=== PATIENT | male | born 1945 | race American Indian/Alaskan Native ===

== ENCOUNTER 2017-03-17 08:18 | Day surgery (SDC) | payer MEDICARE, OTHER ==
[~2017-03-17 08:18] MED LIST: ALBU90OI6 INH; ALLO300 PO; Aspirin EC81 MG PO; BUDE6HFA INH; Calcitriol0.5 MCG PO; Docusate Sodiu1 EACH PO; EPOETIN ALFA 20000 UNIT SC; EXTRANEAL ICO2500 ML IP; GABA400 PO; GENTAMICIN 0.1% TOP; HYDACE10B PO; LAVAP17G PO; Multi-Day Vita1 EACH PO; OMEPRAZOLE MAGN20 MG PO; PAROEX473 ML MM; SEVEC800 PO; Sensipar60 MG PO; TUMS200 MG PO; UBID100 PO; VIT1CAPS12 PO
[2018-03-21] MEDS ORDERED: ASPI81CH PO (14:53)
[2018-03-21] MEDS ORDERED: Ancef/Kefzol1000 MG (14:53)
[2018-03-21] MEDS ORDERED: BUDE.25 NEB (14:53)
[2018-03-21] MEDS ORDERED: BUDE6HFA INH (14:54)
[2018-03-21] MEDS ORDERED: CEPH125SU PO (14:54)
[2018-03-21] MEDS ORDERED: GAVILAX17 GM PO (14:54)
[2018-03-21] MEDS ORDERED: CALC.25 PO (14:54)
[2018-03-22] MEDS ORDERED: CALC.25 PO (09:49)
[2018-03-22] MEDS ORDERED: Midodrine HCl5 MG PO (09:50)
[2018-03-22] MEDS ORDERED: ATOR20 PO (13:33)
== END 2017-03-17 22:37 | disposition home or self-care (01) ==
LOC: ATC 08:18
DX: E22.2 Syndrome of inappropriate secretion of antidiuretic hormone (principal); N18.6 End stage renal disease; I95.9 Hypotension, unspecified; Z99.2 Dependence on renal dialysis
CPT/HCPCS: 96365; 96366; J3475

== ENCOUNTER → 2017-04-13 | Outpatient (CLI) | payer MEDICARE, OTHER ==
[~2017-04-13] MED LIST changes: +ASPI81CH PO; +ATOR20 PO; +Ancef/Kefzol1000 MG; +BUDE.25 NEB; +CALC.25 PO; +CEPH125SU PO; +CINA30 PO; +EPOGEN SC; +ESCI10 PO; +FINA5 PO; +Fludrocortison0.1 MG PO; +GAVILAX17 GM PO; +Gentak3.5 GM TOP; +K-Tab10 MEQ PO; +MAGCHL64ER PO; +MIDO5 PO; +Midodrine HCl5 MG PO; +NAPR500 PO; +Norco 10-325 T1 EACH PO; +PERIDEX15 ML MM; +Rena-Vite Tabl0.8 MG PO; +TAMS.4ER PO; +ZINC OXIDE PO; +ZINC220
[2017-04-13 14:46] LABS: Magnesium, Blood 1.2 mg/dL (1.6-2.4)
[2017-04-13 14:55] LABS: Anion Gap 15 mmol/L (6-16); Blood Urea Nitrogen 44 mg/dL (8-24); Bun/Creatinine Ratio 5.1 (12.0-20.0); CO2, Blood 21 mmol/L (21-32); Chloride, Blood 99 mmol/L (98-108); Glomerular Filtration Rate 7 (60-); Glucose, Blood 112 mg/dL (70-99); Potassium, Blood 3.7 mmol/L (3.5-5.5); Sodium, Blood 135 mmol/L (136-145)
== END ==
LOC: LAB 12:15
PROVIDERS: Internal Medicine
DX: Z12.5 Encounter for screening for malignant neoplasm of prostate (principal); E61.2 Magnesium deficiency; N18.6 End stage renal disease
CPT/HCPCS: 80048; 83735; G0103

== ENCOUNTER → 2017-07-01 | Outpatient (CLI) | payer MEDICARE, OTHER ==
[~2017-07-01] MED LIST changes: -ASPI81CH PO; -ATOR20 PO; -Ancef/Kefzol1000 MG; -BUDE.25 NEB; -CALC.25 PO; -CEPH125SU PO; -GAVILAX17 GM PO; -Midodrine HCl5 MG PO
== END | disposition home or self-care (01) ==
LOC: LAB 15:14 → LAB SHORT 15:14
DX: M12.512 Traumatic arthropathy, left shoulder (principal); Z79.899 Other long term (current) drug therapy

== ENCOUNTER 2017-07-20 11:23 | Observation (INO) | payer MEDICARE, OTHER ==
[~2017-07-20] VITALS: Ht 172.7 cm; Wt 80.7 kg
[~2017-07-20 11:23] MED LIST changes: -CINA30 PO; -EPOGEN SC; -ESCI10 PO; -FINA5 PO; -Fludrocortison0.1 MG PO; -Gentak3.5 GM TOP; -K-Tab10 MEQ PO; -MAGCHL64ER PO; -MIDO5 PO; -NAPR500 PO; -Norco 10-325 T1 EACH PO; -PERIDEX15 ML MM; -Rena-Vite Tabl0.8 MG PO; -TAMS.4ER PO; -ZINC OXIDE PO; -ZINC220
[2017-07-20] MEDS ORDERED: CINA30 PO (11:48)
[2017-07-20] MEDS ORDERED: ZINC OXIDE PO (11:49)
[2017-07-20] MEDS ORDERED: TAMS.4ER PO (11:49)
[2017-07-20] MEDS ORDERED: Rena-Vite Tabl0.8 MG PO (11:50)
[2017-07-20] MEDS ORDERED: K-Tab10 MEQ PO (11:52)
[2017-07-20] MEDS ORDERED: MIDO5 PO (11:52)
[2017-07-20] MEDS ORDERED: ESCI10 PO (11:52)
[2017-07-20] MEDS ORDERED: NAPR500 PO (11:53)
[2017-07-20] MEDS ORDERED: EPOGEN SC (11:54)
[2017-07-20] MEDS ORDERED: FINA5 PO (11:54)
[2017-07-20] MEDS ORDERED: Norco 10-325 T1 EACH PO (11:54)
[2017-07-20] MEDS ORDERED: PERIDEX15 ML MM (11:55)
[2017-07-20 12:20] LABS: BASOPHILS ABSOLUTE AUTO 0.07 K/mm3 (0.00-0.23); BASOPHILS PERCENT AUTO 1 % (0-2); EOSINOPHILS ABSOLUTE AUTO 1.18 K/mm3 (0.00-0.68); EOSINOPHILS PERCENT AUTO 10 % (0-6); Hematocrit 34.9 % (37.0-53.0); IMMATURE GRAN ABSOLUTE AUTO 0.08 K/mm3 (0.00-0.10); IMMATURE GRAN PERCENT AUTO 1 % (0-1); LYMPHOCYTES ABSOLUTE AUTO 2.05 K/mm3 (0.84-5.20); LYMPHOCYTES PERCENT AUTO 17 % (21-46); MONOCYTES ABSOLUTE AUTO 1.04 K/mm3 (0.16-1.47); MONOCYTES PERCENT AUTO 9 % (4-13); Mean Corpuscular HGB 31.8 pg (26.0-34.0); Mean Corpuscular HGB Conc 31.5 g/dL (31.5-36.5); Mean Corpuscular Volume 101 fL (80-100); Mean Platelet Volume 9.6 fL (9.1-12.4); NEUTROPHILS ABSOLUTE AUTO 7.38 K/mm3 (1.96-9.15); NEUTROPHILS PERCENT AUTO 63 % (41-73); NRBC ABSOLUTE 0.04 K/mm3 (0.00-0.02); NRBC Auto 0.3 /100 WBC (0.0-0.2); Platelet Count 302 K/mm3 (150-400); RDW Coefficient Variation 15.1 % (11.7-14.2); RDW Standard Deviation 56.1 fL (35.1-46.3); Red Blood Cell Count 3.46 M/mm3 (4.30-5.90)
[2017-07-20 12:32] LABS: Albumin, Blood 1.5 g/dL (3.4-5.0); Albumin/Globulin Ratio 0.3 (0.8-1.8); Alk Phos 157 U/L (50-136); Anion Gap 13 mmol/L (6-16); Aspartate Aminotrans (AST/SGOT 10 U/L (12-37); Bilirubin, Total 0.3 mg/dL (0.1-1.0); Blood Urea Nitrogen 40 mg/dL (8-24); CO2, Blood 25 mmol/L (21-32); Chloride, Blood 101 mmol/L (98-108); Creatinine, Blood 6.72 mg/dL (0.60-1.20); Globulin, Blood 4.6 g/dL (2.2-4.0); Glomerular Filtration Rate 9 (60-); Glucose, Blood 100 mg/dL (70-99); Magnesium, Blood 2.1 mg/dL (1.6-2.4); Phosphorus, Blood 2.9 mg/dL (2.5-4.9); Potassium, Blood 3.8 mmol/L (3.5-5.5); Sodium, Blood 139 mmol/L (136-145); Total Protein, Blood 6.1 g/dL (6.4-8.2)
[2017-07-20 12:34] LABS: Alanine Aminotransfer (ALT/SGP <6 U/L (12-78)
[2017-07-20 15:21] LABS: Percent Saturation 36.1 % (20.0-50.0)
[2017-07-20] MEDS ORDERED: MAGCHL64ER PO (20:32)
[2017-07-20] MEDS ORDERED: SEVEC800 PO (20:35)
[2017-07-21 06:02] LABS: BASOPHILS ABSOLUTE AUTO 0.12 K/mm3 (0.00-0.23); BASOPHILS PERCENT AUTO 1 % (0-2); EOSINOPHILS ABSOLUTE AUTO 1.47 K/mm3 (0.00-0.68); EOSINOPHILS PERCENT AUTO 14 % (0-6); Hematocrit 33.4 % (37.0-53.0); Hemoglobin 10.4 g/dL (13.5-17.5); IMMATURE GRAN PERCENT AUTO 1 % (0-1); LYMPHOCYTES ABSOLUTE AUTO 1.98 K/mm3 (0.84-5.20); LYMPHOCYTES PERCENT AUTO 19 % (21-46); MONOCYTES ABSOLUTE AUTO 1.22 K/mm3 (0.16-1.47); MONOCYTES PERCENT AUTO 12 % (4-13); Mean Corpuscular HGB 31.2 pg (26.0-34.0); Mean Corpuscular HGB Conc 31.1 g/dL (31.5-36.5); Mean Corpuscular Volume 100 fL (80-100); Mean Platelet Volume 9.2 fL (9.1-12.4); NEUTROPHILS ABSOLUTE AUTO 5.75 K/mm3 (1.96-9.15); NEUTROPHILS PERCENT AUTO 54 % (41-73); Platelet Count 275 K/mm3 (150-400); RDW Coefficient Variation 15.1 % (11.7-14.2); RDW Standard Deviation 54.5 fL (35.1-46.3); Red Blood Cell Count 3.33 M/mm3 (4.30-5.90); White Blood Cell Count 10.64 K/mm3 (4.00-11.30)
[2017-07-21 06:26] LABS: Albumin, Blood 1.5 g/dL (3.4-5.0); Anion Gap 13 mmol/L (6-16); Blood Urea Nitrogen 40 mg/dL (8-24); Bun/Creatinine Ratio 5.9 (12.0-20.0); CO2, Blood 23 mmol/L (21-32); Calcium, Blood 9.5 mg/dL (8.5-10.1); Chloride, Blood 106 mmol/L (98-108); Creatinine, Blood 6.73 mg/dL (0.60-1.20); Glomerular Filtration Rate 9 (60-); Glucose, Blood 98 mg/dL (70-99); Phosphorus, Blood 3.5 mg/dL (2.5-4.9); Potassium, Blood 3.6 mmol/L (3.5-5.5); Sodium, Blood 142 mmol/L (136-145)
[2017-07-21] MEDS ORDERED: TUMS200 MG PO (15:14)
[2017-07-21] MEDS ORDERED: ZINC220 (15:15)
[2017-07-21] MEDS ORDERED: Fludrocortison0.1 MG PO (15:17)
[2017-07-21] MEDS ORDERED: Gentak3.5 GM TOP (15:27)
== END 2017-07-21 16:10 | disposition home or self-care (01) ==
LOC: ER 11:23 → MEDS 11:24
PROVIDERS: Emergency Medicine; Internal Medicine
DX: I95.89 Other hypotension (principal); N18.6 End stage renal disease; D63.1 Anemia in chronic kidney disease; K65.9 Peritonitis, unspecified; R63.4 Abnormal weight loss; R55 Syncope and collapse; N40.0 Benign prostatic hyperplasia without lower urinary tract symptoms; K21.9 Gastro-esophageal reflux disease without esophagitis; F32.9 Major depressive disorder, single episode, unspecified; J44.9 Chronic obstructive pulmonary disease, unspecified; Z88.5 Allergy status to narcotic agent; Z79.899 Other long term (current) drug therapy; Z99.2 Dependence on renal dialysis
CPT/HCPCS: 36415; 74176; 80053; 80069; 82024; 82533; 82728; 83540; 83550; 83735; 84100; 84443; 85025; 93005; 93010; 94640; 94760; 96360; 96361; 96372; 99285; G0257; G0378; J0690; J1644; J7030

== ENCOUNTER 2017-07-25 23:31 | Inpatient (IN) | payer MEDICARE, OTHER ==
[~2017-07-25] VITALS: Ht 172.7 cm; Wt 82.2 kg
[~2017-07-25 23:31] MED LIST changes: +CINA30 PO; +EPOGEN SC; +ESCI10 PO; +FINA5 PO; +Fludrocortison0.1 MG PO; +Gentak3.5 GM TOP; +K-Tab10 MEQ PO; +MAGCHL64ER PO; +MIDO5 PO; +NAPR500 PO; +Norco 10-325 T1 EACH PO; +PERIDEX15 ML MM; +Rena-Vite Tabl0.8 MG PO; +TAMS.4ER PO; +ZINC OXIDE PO; +ZINC220
[2017-07-26 01:08] LABS: BASOPHILS PERCENT AUTO 1 % (0-2); EOSINOPHILS ABSOLUTE AUTO 1.29 K/mm3 (0.00-0.68); EOSINOPHILS PERCENT AUTO 10 % (0-6); Hematocrit 32.8 % (37.0-53.0); Hemoglobin 10.1 g/dL (13.5-17.5); IMMATURE GRAN ABSOLUTE AUTO 0.08 K/mm3 (0.00-0.10); IMMATURE GRAN PERCENT AUTO 1 % (0-1); LYMPHOCYTES ABSOLUTE AUTO 2.03 K/mm3 (0.84-5.20); LYMPHOCYTES PERCENT AUTO 15 % (21-46); MONOCYTES ABSOLUTE AUTO 1.17 K/mm3 (0.16-1.47); MONOCYTES PERCENT AUTO 9 % (4-13); Mean Corpuscular HGB 32.2 pg (26.0-34.0); Mean Corpuscular HGB Conc 30.8 g/dL (31.5-36.5); Mean Platelet Volume 9.2 fL (9.1-12.4); NEUTROPHILS ABSOLUTE AUTO 8.98 K/mm3 (1.96-9.15); NEUTROPHILS PERCENT AUTO 66 % (41-73); NRBC ABSOLUTE 0.03 K/mm3 (0.00-0.02); NRBC Auto 0.2 /100 WBC (0.0-0.2); Platelet Count 260 K/mm3 (150-400); RDW Coefficient Variation 16.1 % (11.7-14.2); RDW Standard Deviation 60.6 fL (35.1-46.3); Red Blood Cell Count 3.14 M/mm3 (4.30-5.90); White Blood Cell Count 13.65 K/mm3 (4.00-11.30)
[2017-07-26 01:09] LABS: Mean Corpuscular Volume 105 fL (80-100)
[2017-07-26 01:23] LABS: Alanine Aminotransfer (ALT/SGP <6 U/L (12-78); Albumin, Blood 1.7 g/dL (3.4-5.0); Albumin/Globulin Ratio 0.4 (0.8-1.8); Alk Phos 163 U/L (50-136); Anion Gap 12 mmol/L (6-16); Aspartate Aminotrans (AST/SGOT 13 U/L (12-37); Bilirubin, Total 0.2 mg/dL (0.1-1.0); Blood Urea Nitrogen 52 mg/dL (8-24); Bun/Creatinine Ratio 6.6 (12.0-20.0); CO2, Blood 25 mmol/L (21-32); Calcium, Blood 8.8 mg/dL (8.5-10.1); Chloride, Blood 105 mmol/L (98-108); Globulin, Blood 4.3 g/dL (2.2-4.0); Glomerular Filtration Rate 7 (60-); Glucose, Blood 107 mg/dL (70-99); Potassium, Blood 3.8 mmol/L (3.5-5.5); Sodium, Blood 142 mmol/L (136-145)
[2017-07-26 08:35] LABS: Hematocrit 27.8 % (37.0-53.0); Hemoglobin 8.6 g/dL (13.5-17.5)
[2017-07-26 10:26] LABS: Amylase, Blood 82 U/L (25-115)
[2017-07-26 10:28] LABS: Lactate Dehydrogenase (Ld),Bld 147 U/L (100-240)
[2017-07-26 14:54] LABS: Body Fluid WBC Count 20 /mm3 (0-999)
[2017-07-26 15:19] LABS: RBC Count, Body Fluid 27 /mm3 (0-0)
[2017-07-26 16:26] LABS: Hematocrit 28.2 % (37.0-53.0); Hemoglobin 8.6 g/dL (13.5-17.5)
[2017-07-26 16:35] LABS: Appearance, Body Fluid Clear (Clear); Color, Body Fluid No color (None-Yellow)
[2017-07-26 16:36] LABS: Total Cell Count, Body Fluid 100
[2017-07-26 16:58] LABS: Adenovirus F 40/41 Not Detected (NOT DETECT); Astrovirus Not Detected (NOT DETECT); Campylobacter Sp Not Detected (NOT DETECT); Cryptosporidium Not Detected (NOT DETECT); Cyclospora Cayetanensis Not Detected (NOT DETECT); E. Coli O157 Not Detected (NOT DETECT); Entamoeba Histolytica Not Detected (NOT DETECT); Enteroaggregative E. coli-EAEC Not Detected (NOT DETECT); Enteropathogenic E. coli-EPEC Not Detected (NOT DETECT); Enterotoxigenic E. coli-ETEC Not Detected (NOT DETECT); Giardia Lamblia Not Detected (NOT DETECT); Norovirus GI/GII Not Detected (NOT DETECT); Plesiomonas Shigelloides Not Detected (NOT DETECT); Rotavirus A Not Detected (NOT DETECT); Salmonella Sp Not Detected (NOT DETECT); Sapovirus Not Detected (NOT DETECT); Shiga Toxin-prod E. coli-STEC Not Detected (NOT DETECT); Shigella/Enteroin E. coli-EIEC Not Detected (NOT DETECT); Vibrio Cholerae Not Detected (NOT DETECT); Vibrio Sp Not Detected (NOT DETECT); Yersinia Enterocolitica Not Detected (NOT DETECT)
[2017-07-27 00:54] LABS: Hematocrit 29.1 % (37.0-53.0); Hemoglobin 8.9 g/dL (13.5-17.5)
[2017-07-27 01:16] LABS: Magnesium, Blood 2.2 mg/dL (1.6-2.4)
[2017-07-27 01:21] LABS: Albumin, Blood 1.5 g/dL (3.4-5.0); Anion Gap 13 mmol/L (6-16); Blood Urea Nitrogen 59 mg/dL (8-24); Bun/Creatinine Ratio 7.1 (12.0-20.0); CO2, Blood 26 mmol/L (21-32); Calcium, Blood 8.8 mg/dL (8.5-10.1); Chloride, Blood 103 mmol/L (98-108); Creatinine, Blood 8.32 mg/dL (0.60-1.20); Glomerular Filtration Rate 7 (60-); Glucose, Blood 109 mg/dL (70-99); Phosphorus, Blood 3.6 mg/dL (2.5-4.9); Sodium, Blood 142 mmol/L (136-145)
[2017-07-28 05:19] LABS: Hematocrit 28.6 % (37.0-53.0); Hemoglobin 8.8 g/dL (13.5-17.5)
== END 2017-07-28 16:05 | disposition home or self-care (01) | DRG 377 ==
LOC: ER 23:31 → ERHOLD 23:32 → ICUW 23:32 → MEDS 07-26 04:30 → ICUW 07-26 15:12 → MEDS 07-27 11:51
PROVIDERS: Emergency Medicine; Internal Medicine; Internal Medicine Gastroenterology
PROC: 5A1D70Z Performance of Urinary Filtration, Intermittent, Less than 6 Hours Per Day (ICD-10-PCS; 2017-07-27)
PROC: 0W3P8ZZ Control Bleeding in Gastrointestinal Tract, Via Natural or Artificial Opening Endoscopic (ICD-10-PCS; 2017-07-27)
PROC: 0DBH8ZX Excision of Cecum, Via Natural or Artificial Opening Endoscopic, Diagnostic (ICD-10-PCS; principal; 2017-07-27 12:00)
PROC: 0DBL8ZX Excision of Transverse Colon, Via Natural or Artificial Opening Endoscopic, Diagnostic (ICD-10-PCS; 2017-07-27 12:00)
PROC: 0DBN8ZX Excision of Sigmoid Colon, Via Natural or Artificial Opening Endoscopic, Diagnostic (ICD-10-PCS; 2017-07-27 12:00)
PROC: 0DBM8ZX Excision of Descending Colon, Via Natural or Artificial Opening Endoscopic, Diagnostic (ICD-10-PCS; 2017-07-27 12:00)
PROC: 0DB68ZX Excision of Stomach, Via Natural or Artificial Opening Endoscopic, Diagnostic (ICD-10-PCS; 2017-07-27 12:00)
DX: K92.1 Melena (principal); N18.6 End stage renal disease; K65.9 Peritonitis, unspecified; I13.2 Hypertensive heart and chronic kidney disease with heart failure and with stage 5 chronic kidney disease, or end stage renal disease; K57.30 Diverticulosis of large intestine without perforation or abscess without bleeding; K64.8 Other hemorrhoids; K64.4 Residual hemorrhoidal skin tags; K22.8 Other specified diseases of esophagus; K22.5 Diverticulum of esophagus, acquired; K44.9 Diaphragmatic hernia without obstruction or gangrene; I50.9 Heart failure, unspecified; Z99.2 Dependence on renal dialysis; K21.9 Gastro-esophageal reflux disease without esophagitis; N40.0 Benign prostatic hyperplasia without lower urinary tract symptoms; R63.4 Abnormal weight loss; R13.10 Dysphagia, unspecified; D12.0 Benign neoplasm of cecum; K63.5 Polyp of colon
CPT/HCPCS: 36415; 80053; 80069; 82150; 83605; 83615; 83690; 83735; 83993; 85014; 85018; 85025; 87070; 87205; 87507; 88305; 88342; 89051; 93005; 93010; 94762; 99285; G0378; J0290; J0690; J0881; J1580; J1644; J2250; J2405; J3010; J7030; J7120

== ENCOUNTER → 2018-03-14 | Outpatient (CLI) | payer MEDICARE, OTHER ==
[~2018-03-14] MED LIST changes: +ASPI81CH PO; +ATOR20 PO; +Ancef/Kefzol1000 MG; +BUDE.25 NEB; +CALC.25 PO; +CEPH125SU PO; +GAVILAX17 GM PO; +Midodrine HCl5 MG PO
[2018-03-14 11:23] LABS: Bilirubin, Urine Neg (Neg); Blood, Urine 1+ (Neg); Glucose Qualitative, Urine 1+ (Neg); Ketones, Urine Neg (Neg); Leukocyte Esterase, Urine Neg (Neg); Nitrite, Urine Neg (Neg); Protein, Urine 3+ (Neg); Urobilinogen, Urine NORM (Normal)
[2018-03-14 11:52] LABS: Appearance, Urine Clear (Clear); Color, Urine Yellow (P-Yellow)
[2018-03-14 11:53] LABS: Bacteria Few /hpf; Squamous Epithelial Cells Few /hpf (Few)
== END | disposition home or self-care (01) ==
LOC: LAB SHORT 10:12 → LAB 10:12 → EDSTATUS 03-10 14:40 → LAB FUT 03-10 14:40
PROVIDERS: Internal Medicine
DX: N39.0 Urinary tract infection, site not specified (principal)
CPT/HCPCS: 81001